=== PATIENT | female | born 1940 | race Caucasian/White ===

== ENCOUNTER 2018-04-21 01:59 | Inpatient (IN) | payer MEDICARE, BC ==
[2014-09-28 16:50] VITALS: Ht 152.4 cm; Wt 73.0 kg
--- NOTE | 2018-04-16 15:38 | HISTORY AND PHYSICAL ---
DATE OF ADMISSION: April 21, 2018 IDENTIFICATION AND CHIEF COMPLAINT Fely is a 77-year-old woman with chief complaint of right shoulder pain. HISTORY OF PRESENT ILLNESS Patient has a long-standing history of rotator cuff tear arthropathy progressively painful and debilitating, refractory to conservative care. Surgery is indicated to relieve symptoms after failure of nonoperative measures. PAST MEDICAL HISTORY 1. Hypertension, controlled on medication. 2. Gout. 3. Hypercholesterolemia. 4. Acid reflux. ALLERGIES SULFA. CURRENT MEDICATIONS 1. Hydrochlorothiazide 25 mg p.o. q. day. 2. Allopurinol 300 mg p.o. q. day. 3. Simvastatin 40 mg p.o. q. day. 4. Pantoprazole 40 mg p.o. q. day. 5. Potassium supplements. PAST SURGICAL HISTORY 1. Cholecystectomy. 2. Bilateral total knee arthroplasties. FAMILY HISTORY Noncontributory. SOCIAL HISTORY Negative for tobacco and alcohol use. REVIEW OF SYSTEMS Notable for history of pulmonary embolus in 2012, single event. PHYSICAL EXAMINATION GENERAL: This is a healthy female. HEENT: She is normocephalic, atraumatic. NECK: Supple. LUNGS: Clear. HEART: Rate is regular. ABDOMEN: Soft. 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 She can only elevate about 30 degrees. She can with a trick maneuver abduct and get the arm up above shoulder. She has pain and crepitus throughout range of motion. She is weak in forward elevation, abduction, adduction, and external rotation with some lag. Skin is intact. Neurovascular function intact. LABORATORY DATA Radiographs demonstrate arthritic changes, and an MRI demonstrates irreparable tearing of her cuff. ASSESSMENT Right shoulder cuff tear arthropathy, progressively painful and debilitating, refractory to conservative care. PLAN Will proceed with reverse total shoulder arthroplasty per patient's request. Nature of the procedure, risks, benefits, and the anticipated rehabilitative course reviewed. The risks of the procedure include, but are not limited to , major medical or anesthetic complication, infection, neurovascular injury, blood transfusion, stiffness, scarring, fracture, tendon rupture, instability, implant loosening, migration, or failure, persistent or recurrent pain, weakness, limited motion, need for additional surgery, and other unforeseen. She understands and wishes to proceed. Signed permit is placed in the chart. No guarantees are given or implied. ANGELA
[2018-04-20 15:48] LABS: INR 0.96
[~2018-04-21] VITALS: Ht 152.4 cm; Wt 73.0 kg
[2018-04-21] VITALS (14 sets, daily range): BP systolic 97–147; BP diastolic 53–83
[~2018-04-21 01:59] MED LIST: ALLO-119 PO; CALC-1 PO; DOCU-416 PO; HYDR-2966 PO; LOR5/325 PO; MOM PO; OXYC-823 PO; PANT40TA65 PO; POTA20TA94 PO; RIV10 PO; SIMV-54 PO
[2018-04-21] MEDS ORDERED: PREGABALIN 75 MG CAPSULE PO ONE (10:30)
[2018-04-21] MEDS ORDERED: CELECOXIB 200 MG CAP PO ONE (10:30)
[2018-04-21] MEDS ORDERED: LIDOCAINE/SOD BICARB 8.4% SYR ID ONE (10:30)
[2018-04-21] MEDS ORDERED: MIDAZOLAM 2 MG/2 ML VIAL IVP PRN (10:30)
[2018-04-21] MEDS ORDERED: TRANEXAMIC AC 1000 MG/10ML SDV 1,000 MG in DEXTROSE 5% 50 ML BAG 50 ML IV ONE (10:30)
[2018-04-21] MEDS ORDERED: NORMOSOL R SOLN(*) 1000 ML BAG 1,000 ML IV PRN ×2 (10:30→16:00)
[2018-04-21] MEDS ORDERED: ACETAMINOPHEN 500 MG TAB PO ONE (10:30)
[2018-04-21] MEDS ORDERED: ceFAZolin(*) 1 GM VIAL 1 GM in NS(*) 0.9% 100 ML ADDVANT BAG 100 ML IVPB ONE (10:30)
[2018-04-21] MEDS ORDERED: cloNIDine EPIDUR INJ 100MCG/ML 40 MCG, ROPIVACAINE 0.5% 20 ML VIAL 25 ML, EPINEPHrine H... INJ ONE (10:30)
[2018-04-21] MEDS ORDERED: LIDOCAINE MPF 1% 5 ML VIAL ONE (10:43)
[2018-04-21] MEDS ORDERED: PROPOFOL EMUL(*) 10MG/ML 20 ML 20 ML ONE (10:43)
[2018-04-21] MEDS ORDERED: ONDANSETRON 4 MG/2 ML VIAL ONE (10:43)
[2018-04-21] MEDS ORDERED: fentaNYL CITR 100 MCG/2 ML AMP ONE (10:43)
[2018-04-21] MEDS ORDERED: DEXAMETHASONE SOD 4 MG/ML VIAL ONE (10:43)
[2018-04-21] MEDS ORDERED: SUGAMMADEX SOD 200 MG/2 ML SDV ONE (11:32)
[2018-04-21] MEDS ORDERED: ROPIVACAINE 0.5% 20 ML VIAL ONE (12:29)
[2018-04-21] MEDS ORDERED: NS 0.9% 20 ML SDV 20 ML ONE ×2 (12:29→13:39)
[2018-04-21] MEDS ORDERED: HYDROGEN PEROXID 3% 473 ML BTL TP ONE (12:56)
[2018-04-21] MEDS ORDERED: GELATIN SPONGE 12-7MM ONE (12:56)
[2018-04-21] MEDS ORDERED: THROMBIN TOP SOLN 5000INTLU VL ONE (12:56)
[2018-04-21] MEDS ORDERED: VANCOMYCIN 1 GM VIAL ONE (12:57)
[2018-04-21] MEDS ORDERED: ROCURONIUM BROM 10 MG/ML 5 ML ONE (13:30)
[2018-04-21] MEDS ORDERED: VASOPRESSIN 20 UNIT/ML VIAL ONE ×2 (13:30→14:53)
[2018-04-21] MEDS ORDERED: diphenhydrAMINE 50 MG/ML VIAL IVP PRN (16:00)
[2018-04-21] MEDS ORDERED: PROMETHAZINE 25 MG/ML 1 ML AMP IVP PRN (16:00)
[2018-04-21] MEDS ORDERED: BENZOCAINE/MENTHOL 1 EACH LOZG PO PRN (16:00)
[2018-04-21] MEDS ORDERED: ZOLPIDEM TARTRATE 5 MG TAB PO PRN (16:00)
[2018-04-21] MEDS ORDERED: BISACODYL 10 MG SUPP PR PRN (16:00)
[2018-04-21] MEDS ORDERED: ACETAMINOPHEN 325 MG TAB PO PRN (16:00)
[2018-04-21] MEDS ORDERED: DIAZEPAM 5 MG TAB PO PRN (16:00)
[2018-04-21] MEDS ORDERED: MAGNESIUM HYDROXIDE* 30ML UDCP PO PRN (16:00)
[2018-04-21] MEDS ORDERED: diphenhydrAMINE 25 MG CAP PO PRN (16:00)
[2018-04-21] MEDS ORDERED: FLUSH 10 ML SYR IVP PRN (16:00)
--- NOTE | 2018-04-21 16:47 | OPERATIVE REPORT 1 ---
EVENT DATE: April 21, 2018 SURGEON: Del Reaves MD ANESTHESIOLOGIST: Baldemar Golden MD ANESTHESIA: General plus scalene. SUPERVISOR PLEATING: Keith Vega PA-C PREOPERATIVE DIAGNOSIS Right shoulder rotator cuff tear arthropathy and long head biceps disease. POSTOPERATIVE DIAGNOSIS Right shoulder rotator cuff tear arthropathy and long head biceps disease. PROCEDURE PERFORMED Right reverse total shoulder arthroplasty and open long-head biceps tenodesis. ESTIMATED BLOOD LOSS 200 mL DRAINS None. SPECIMENS None. COMPLICATIONS None apparent. IMPLANTS USED [place] Reunion reverse total shoulder arthroplasty, glenoid baseplate 28 mm diameter with a central 6.5 x 28 mm locking screw, four 4.5 peripheral locking screws, a 13 mm concentric, 2 mm offset glenosphere, Reunion RSA size 12 humeral stem with a 32 diameter, 4 mm thickness cup, and a 13 mm, 4 thickness humeral insert. INDICATIONS Fely is a 77-year-old woman with intractable pain related to end-stage cuff tear arthropathy. Surgery is indicated to relieve symptoms after failure of nonoperative measures. DESCRIPTION OF PROCEDURE Patient was taken to the operating room and placed supine on the operating table. Scalene block was administered by the anesthesiologist. General anesthesia was induced. Antibiotics and TXA are administered IV. Right upper extremity is prepped and draped in the usual sterile fashion for shoulder arthroplasty. A curvilinear incision is made in the deltopectoral interval and carried down through the skin only. Blunt dissection is carried down to the cephalic vein of the deltopectoral interval. This is taken laterally over the deltoid, and then the deltopectoral interval is developed with a gloved finger bluntly. The clavipectoral fascia is released along the lateral aspect of the conjoined tendon, and a gloved finger is introduced. The axillary neurovascular bundle is identified and protected. Dissection is carried between the deltoid and the scarred bursa and undersurface of the acromion to free up the [id number] interface. A full-thickness repairable tear of the supraspinatus and infraspinatus is noted. This is attenuated, but intact subscapularis and an intact teres minor. The anterior humeral circumflex vessels were ligated, and the long head of the biceps identified and tenodesed to the pectoralis major with #2 Ethibond [id number] sutures. The remainder of the biceps is clipped and traced up into the rotator interval and resected. A tenotomy/arthrotomy is made about 1.5 cm medial to the subscapularis insertion. Subscapularis is tagged for later reattachment with #2 Ethibond suture. A 360-degree release of the subscapularis is performed next, taking care to avoid injury to the neurovascular bundle. Next, the residual labrum and the stump of the superior labrum were resected. I should note that prior to the tenotomy, the long head of the biceps was identified. A bit of the upper border of the pectoralis major is released, and the biceps is tenodesed directly to the pectoralis stump using #2 Ethibond [id number] sutures. Remaining biceps is clipped and traced up into the joint where the remainder will be resected along with glenoid preparation. The humeral head was dislocated, and peripheral osteophytes were resected. A 135-degree cut is made after marking the ideal site, and 30 degrees of retroversion is dialed into the cut. Humeral head is extracted. Humerus is then translocated posteriorly, and the labrum is excised. The glenoid is exposed en face. The aiming device is used to direct the center pin at a 10-degree superior tilt and neutral version. The pin is then used to ream to provide a concentric back for the metaglene. The central pin is then removed. The metaglene is inserted. After measuring the central screw, the central 6.5 screw is used to solidly fix the metaglene down to subchondral plate. This is locked in place. Peripheral locking screws are placed starting superiorly, aiming for the base of the coracoid and inferiorly aiming for the lateral angle of the scapula. Good locking screws were obtained here. Anterior and posterior locking screws were also obtained at or above the minimum required length. Rock-solid metaglene fixation is achieved. This is lavaged and dried. Peripheral soft tissues are removed, and the 32 mm glenosphere is impacted onto the metaglene and seats firmly. Attention is turned to humeral preparation. Audi awl finds the canal. Tapered reaming is performed up to 12. The 10 broach is then inserted at 30 degrees of retroversion, followed by the 12 broach. Trial reduction is performed off the 12 broach, and good mormonism of soft tissue tension and stability are achievable. The broach is removed. The actual stem is then seated at the same height. Trial reduction is performed with various cup sizes, and the +4 is felt to be optimal for mormonism of soft tissue tension and stability. This is then impacted into the Smith taper, and the joint is reduced. Wound is copiously lavaged. Meticulous hemostasis is assured. The subscapularis reapproximated anatomically with #2 Ethibond. Deltopectoral interval is allowed to fold back together. Skin is closed with 3- 0 Vicryl for the dermis, 4-0 Monocryl for the skin, and Steri-Strips were applied, followed by a dry, sterile dressing and an Ultra-Sling. Patient was awakened from anesthesia and taken to the recovery room in stable condition having tolerated the procedure well. PLAN Plan is for standard reverse total shoulder arthroplasty protocol, forward elevation to full and external rotation not to exceed 40 for the first month. No internal rotation behind the back, and no extension beyond the plane of the trunk for the first month. [facility]
--- NOTE | 2018-04-21 17:05 | RADIOLOGY IMAGING REPORT ---
FACILITY: [facility] PATIENT NAME: Fely Chaves : 1940 MR: [id number] V: [id number] EXAM DATE: ORDERING PHYSICIAN: REID GOLDSTEIN TECHNOLOGIST: Location: [facility] - [place] Patient: Fely Chaves : 1940 Visit/Account:[id number] Date of Sevice: 04/21/2018 SHOULDER 1 VIEW RIGHT Indication: POST R REVERSE TSA Comparison: None. Findings: There are postoperative changes from right shoulder arthroplasty. Hardware appears in good alignment. IMPRESSION: Postoperative changes right shoulder arthroplasty. Report Dictated By: Be Peñaloza at 04/21/2018 5:00 PM Report E-Signed By: Be Peñaloza at 04/21/2018 5:01 PM WSN:[id number]
--- NOTE | 2018-04-21 17:22 | Hospitalist Progress Note ---
Subjective Progress Notes Subjective Patient seen post-op. Reviewed PMHx (HTN, PE, gout, osteoporosis, hyperlipidemia, GERD) and medications. At present she reports doing well. No CP/SOB/N/V. Pain control has been very good thus far. Physical Exam Vital Signs Date Time Temp Pulse Resp B/P (MAP) Pulse Ox O2 Delivery O2 Flow Rate FiO2 04/21/18 16:51 97.5 95 12 112/68 (83) 95 Nasal Cannula 2.0 General Appearance: Alert, Awake Cardiovascular: Regular Rate and Rhythm Respiratory: Clear to Auscultation Extremities: Other (RUE in immobilizer) Assessment and Plan Problems: (1) S/P shoulder replacement Status: Acute Assessment & Plan: She appears stable post-op. As per Dr. Reaves. (2) HTN (hypertension) Status: Chronic Assessment & Plan: Will monitor BPs and resume her HCTZ as needed. (3) Hyperlipidemia Status: Chronic Assessment & Plan: Continue simvastatin. (4) Gout Status: Chronic Assessment & Plan: Continue allopurinol. (5) GERD (gastroesophageal reflux disease) Status: Chronic Assessment & Plan: Continue Protonix. EVI MCMANUS MD Apr 21, 2018 17:22
[2018-04-21] MEDS: CELECOXIB 200 MG CAP PO SCH (18:11)
[2018-04-21] MEDS: ceFAZolin(*) 1 GM VIAL 1 GM in NS(*) 0.9% 100 ML ADDVANT BAG 100 ML IVPB SCH (20:39)
[2018-04-21] MEDS ORDERED: SIMVASTATIN 40 MG TAB PO SCH (21:00)
[2018-04-21] MEDS ORDERED: NS(*) 0.9% 250 ML BAG 250 ML ONE (23:39)
[2018-04-22] VITALS (7 sets, daily range): BP systolic 94–125; BP diastolic 54–79
[2018-04-22] MEDS: ceFAZolin(*) 1 GM VIAL 1 GM in NS(*) 0.9% 100 ML ADDVANT BAG 100 ML IVPB SCH (05:21)
[2018-04-22] MEDS: APAP/HYDROCODONE 325/7.5 TAB PO PRN ×2 (06:07→10:11)
[2018-04-22] MEDS ORDERED: HYDR-654 PO (07:28)
[2018-04-22] MEDS ORDERED: POTASSIUM CHL 20 MEQ TABCR PO SCH (08:00)
[2018-04-22] MEDS: CELECOXIB 200 MG CAP PO SCH (08:19)
--- NOTE | 2018-04-22 08:59 | Hospitalist Progress Note ---
Subjective Progress Notes Subjective She has no complaints this morning. She had no acute events overnight. She would like to go home today. Patient Complains of: Cardiovascular: No: Chest Pain Respiratory: No: Shortness of Breath Physical Exam Vital Signs Date Time Temp Pulse Resp B/P (MAP) Pulse Ox O2 Delivery O2 Flow Rate FiO2 04/22/18 07:50 92 04/22/18 07:27 97.9 77 16 125/79 (94) Nasal Cannula 04/22/18 02:42 1.5 Intake and Output 04/22/18 07:00 Intake Total 3060 ml Balance 3060 ml Intake Oral 1150 ml IV Total 1910 ml # Voids 3 General Appearance: Alert, Awake, No Acute Distress, Afebrile Neuro: No Gross deficits Cardiovascular: Regular Rate and Rhythm Respiratory: No Respiratory Distress, Clear to Auscultation GI: Soft and Non-Tender Psych: Alert & Oriented X3, Appropriate Mood & Affect Assessment and Plan Problems: (1) S/P shoulder replacement Status: Acute Assessment & Plan: She appears stable post-op. As per Dr. Reaves. She does have a history of DVT after knee surgery. She was given Xarelto prescription per Dr. Reaves. She will take Xarelto for 14 days, then switch to Adult aspirin for 14 days, then stop. (2) HTN (hypertension) Status: Chronic Assessment & Plan: Will monitor BPs and resume her HCTZ as needed. (3) Hyperlipidemia Status: Chronic Assessment & Plan: Continue simvastatin. (4) Gout Status: Chronic Assessment & Plan: Continue allopurinol. (5) GERD (gastroesophageal reflux disease) Status: Chronic Assessment & Plan: Continue Protonix. Exam Sepsis Risk: No Definite Risk MARGOT AGRAWAL SEED BUYER Apr 22, 2018 08:59
[2018-04-22] MEDS ORDERED: RIVAROXABAN 10 MG TAB PO SCH (09:00)
[2018-04-22] MEDS ORDERED: ASPIRIN 325 MG TAB PO SCH (09:00)
[2018-04-22] MEDS ORDERED: ALLOPURINOL 300 MG TAB PO SCH (09:00)
[2018-04-22] MEDS ORDERED: PANTOPRAZOLE SOD 40 MG TABEC PO SCH (09:00)
[2018-04-22] MEDS ORDERED: HYDROCHLOROTHIAZIDE 25 MG TAB PO SCH (09:00)
[2018-04-22] MEDS ORDERED: RIV10 PO (10:23)
== END 2018-04-22 12:00 | disposition home or self-care (01) | DRG 483 ==
LOC: OR 01:59 → MED 16:45 → OBSVTOIN 16:45
PROVIDERS: ADMIT Orthopaedic Surgery; ATTEND Orthopaedic Surgery
PROC: 0LS30ZZ Reposition Right Upper Arm Tendon, Open Approach (ICD-10-PCS; 2018-04-21)
PROC: 0RRJ00Z Replacement of Right Shoulder Joint with Reverse Ball and Socket Synthetic Substitute, Open Approach (ICD-10-PCS; principal; 2018-04-21 13:16)
DX: M19.011 Primary osteoarthritis, right shoulder (principal); I10 Essential (primary) hypertension; K21.9 Gastro-esophageal reflux disease without esophagitis; M81.0 Age-related osteoporosis without current pathological fracture; R29.818 Other symptoms and signs involving the nervous system; M1A.9XX0 Chronic gout, unspecified, without tophus (tophi); E78.5 Hyperlipidemia, unspecified; Z96.653 Presence of artificial knee joint, bilateral; Z88.2 Allergy status to sulfonamides; Z90.49 Acquired absence of other specified parts of digestive tract; Z86.711 Personal history of pulmonary embolism; Z86.718 Personal history of other venous thrombosis and embolism
CPT/HCPCS: 36415; 85610; 86850; 86900; 86901; 97165; J0690; J1100; J2001; J2250; J2405; J2704; J2795; J3010; J3370; J3490; J7050; J7060